=== PATIENT | female | born 1965 | race Caucasian/White ===

== ENCOUNTER → 2018-08-01 | Outpatient (CLI) | payer BC ==
--- NOTE | 2018-08-01 16:04 | KCIC ---
EXAMINATION: Magnetic resonance imaging (MRI) of the lumbar spine without contrast 08/01/2018 2:45 PM HISTORY: Spondylolisthesis. Low back pain since May. TECHNIQUE: Multiplanar multi-weighted MRI of the lumbar spine was performed without intravenous contrast using the standard lumbar spine protocol. Contrast information: None administered. COMPARISON: None available. FINDINGS: There is grade 1 anterolisthesis of L5 on S1. Vertebral body heights are maintained. Marrow signal intensity is normal in all sequences. There is moderate disc height loss at L5-S1. Disc desiccation is identified at L4-L5 and L5-S1. Conus medullaris terminates at L1. Distal spinal cord signal intensity is normal in all sequences. No suspicious retroperitoneal abnormality is identified. Inferior pole right renal cyst measures 18 mm (Bosniak 1). Abdominal aorta is normal in caliber. No suspicious sacral abnormalities identified. L3-L4: There is mild disc bulge asymmetric to the left. There is moderate to severe facet arthropathy. No neuroforaminal or spinal canal stenosis. L4-L5: There is mild disc bulge. There is moderate to severe facet arthropathy. There is mild bilateral neuroforaminal stenosis. No spinal canal stenosis. L5-S1: There is moderate disc bulge. There is severe facet arthropathy. No definite spondylolysis. There is mild spinal canal stenosis. IMPRESSION: Grade 1 anterolisthesis of L5 on S1, likely secondary to degenerative facet arthropathy. There is mild spinal canal stenosis at this level. Mild degenerative changes of lumbar spine are present as described in detail above. Electronically signed by: Bell Harp MD (08/01/2018 3:59 PM) [facility]
== END | disposition home or self-care (01) ==
LOC: KCIC MRI 14:26
PROVIDERS: ATTEND Nurse Practitioner
DX: M43.07 Spondylolysis, lumbosacral region (principal); M48.07 Spinal stenosis, lumbosacral region; N28.1 Cyst of kidney, acquired
CPT/HCPCS: 72148

== ENCOUNTER → 2018-08-06 | Outpatient (CLI) | payer BC ==
--- NOTE | 2018-08-12 17:10 | KCIC ---
Bilateral digital screening mammograms with 3-D tomosynthesis: Reason for examination: Routine screening. Comparison is made to previous studies dated 01/14/2013 and 04/24/2008. Bilateral mammograms in CC and oblique projections were obtained with 2-D imaging and 3-D tomosynthesis imaging on a Siemens Inspiration unit and reviewed on the workstation. Interpretation was made with the benefit of CAD. The skin and nipples show no abnormalities. No abnormal axillary lymph nodes are seen. The breast parenchyma shows scattered fatty and fibroglandular density. (Breast density: Category B.) There appears to be some nodular asymmetry in the lower inner quadrant of the left breast anteriorly and in the retroareolar position of the right breast which is stable. There are no new dominant masses, suspicious calcifications or architectural distortion. Impression: No evidence of malignancy. Recommend routine mammographic follow-up. BI-RADS Category 2: Benign. "Our facility is accredited by the [employer] Mammography Program." This patient's information has been entered into a reminder system for the patient to be notified with the results of her examination and a target date for the next mammogram. Electronically signed by: Orquidea Del Castillo MD (08/12/2018 5:06 PM) [id number]
== END | disposition home or self-care (01) ==
LOC: KCIC MAMMO 12:02
PROVIDERS: ATTEND Nurse Practitioner
DX: Z12.31 Encounter for screening mammogram for malignant neoplasm of breast (principal)
CPT/HCPCS: 77063; 77067